=== PATIENT | male | born 1995 | race Hispanic/Latino ===

== ENCOUNTER 2016-11-14 19:02 | Emergency (ER) | payer OTHER ==
[~2016-11-14] VITALS: Ht 162.6 cm; Wt 116.0 kg
[~2016-11-14 19:02] MED LIST: NALTREXONE; VNL75T PO
[2016-11-14 19:11] VITALS: BP 118/72; PULSE 85; RESP 16; O2SAT 100
--- NOTE | 2016-11-14 21:06 | ED.REPORT ---
HPI-General Illness Date of Service November 14, 2016 ED Provider: Gideon Cash MD 21 year old male with a history of depression, anxiety, and heroin abuse presents to the ER accompanied by his mother due to concern for drug overdose. Nine days ago he started abusing his Xanax prescription and drinking heavily. When his mother returned home today she states that he appeared "out of it", and told her that he had been using Xanax, clonazepam, and drank a water bottle full of vodka. Patient reports that he last took medications around 13:30 today. Mother reports that the patient has been clean for 75 days from heroin on Vivitrol. Nursing Notes Stated Complaint: POSS OVERDOSE Chief Complaint: Substance Abuse Nursing Notes Reviewed: Yes Allergies: Coded Allergies: No Known Allergies (Verified Allergy, Unknown, 06/01/15) Scheduled Venlafaxine-Expunged Drug, Do Not Renew! (Effexor-Expunged Drug, Do Not Renew!) 75 Mg Tablet 75 MG PO DAILY Scheduled PRN Hydroxyzine Pamoate (Vistaril) 50 Mg Capsule 50 MG PO TID PRN PRN For Anxiety Miscellaneous Medications ([Naltrexone]) General Time Seen by MD: 21:05 Chief Complaint Other (Drug Overdose) Hx Obtained From: Other family... (Mother) Arrived By: Walk-in Sudden in Onset?: No Onset Occurred: Just prior to arrival Symptom Duration: Since onset Context Related History: Reports Depression Similar Sx Previous: Yes Past Medical History Past Medical History Anxiety, substane abuse (Heroin) Reports: Depression Past Surgical History Denies Smoking History Current Every Day Smoker Social History Opiate use Alcohol Use: Denies alcohol use Drug Use: IV drugs, Meth Ambulatory Status Independent Review of Systems Full Review of Systems Neurologic: Reports: Change LOC Psychiatric: Reports: Anxiety, Depression, Denies: Agitation, Confusion, Delusional, Hallucinations, auditory, Hallucinations, visual, Homicidal ideation, Hostile, Unable to control self Complete sys rev & neg: except as marked. Physical Exam Vital Signs Vital Signs Date Time Temp Pulse Resp B/P Pulse Ox O2 Delivery O2 Flow Rate FiO2 11/14/16 21:46 82 106/78 93 Room Air 11/14/16 21:42 82 13 106/78 93 Room Air 11/14/16 21:10 73 12 113/83 99 Room Air 11/14/16 19:11 36.4 85 16 118/72 100 Room Air Initial VS: Reviewed Head / Eyes: Atraumatic, Normocephalic, PERRL Neck: Supple, Non-tender, Full range of motion Respiratory: Breath sounds normal, Clear to auscultation, No respiratory distress Cardiovascular: Regular rate & rhythm, Heart sounds normal, Intact distal pulses Extremities: Vascular intact, Neuro intact, No swelling, No tenderness Skin: Warm, Dry, No cyanosis General/Constitutional: Well appearing, Well developed, Well hydrated, Well nourished Alertness: Positive: Sleeping but arousable ENT: Airway patent, Mucous membranes moist Neurologic: Oriented X3, Speech NL, No motor deficits, No sensory deficits Psychiatric: Not homicidal, No hallucinations, Cognitive function NL Abnormal Mood/Affect: Positive: Depressed, Flat affect Re-Eval/Medical Decision Med Decision/Clinical Course 21-year-old with history of various drugs of abuse including IV drug abuse. He has been clean from heroin for quite some time, but just this past week is been abusing Xanax and clonazepam intermittently. He took too much last night in addition to some alcohol, and was oversedated. Mom presents with him here now recovering having bottomed out from his depressed mental status due to the overdose. He is in no particular risk for Xanax or other benzo withdrawal, given the brief period abuse. He is not suicidal, but is not participating well with counseling at the moment. He is discharged home with mother for return to his counseling. He had formerly been on low-dose venlafaxine, and might benefit from a restart and advancement to a therapeutic dose. He is discharged in stable condition. Time of Eval: 21:17 Re-Evaluation/Progress Note: Discussed physical examination findings and plan to discharge. Patient and mother are amenable to the plan. Return precautions given. All other questions addressed. Counseled Regarding: Diagnosis, Need for follow-up, When/why to return to ED Discharge & Departure Primary Impression: Substance abuse Additional Impressions: Alcohol abuse Anxiety Depression Disposition: Home Discharge Condition All VS Reviewed: Yes Condition: Stable Additional Instructions: Go home and rest. Tylenol or Motrin okay in the morning for hangover. Hydration with Powerade or Gatorade is helpful. Consider returning to an antidepressant. Contact your prescriber to restart that. If he did well on venlafaxine, that might be a good start. Removal all substances with abuse potential from the household tonight. Observe him closely. Return to the ER if he develops breathing difficulty, seizure-like activity, nausea, vomiting, diarrhea, or any other worsening or concerning symptoms. Referrals: Jose D Shin MD (PCP) [facility] Attestation Portions of this note were transcribed by Mauricio Lazcano. I, Dr. Cash, personally performed the history, physical exam and medical decision-making; I reviewed and confirmed the accuracy of the information in the transcribed note. Signed by: Hayley Cummings, 11/14/2016 at 21:42 copies to: Jose D Shin MD, Christopher W MD November 14, 2016 21:06 MAURICIO LAZCANO November 14, 2016 21:14
[2016-11-14 21:10] VITALS: BP 113/83; PULSE 73; RESP 12; O2SAT 99
[2016-11-14] MEDS ORDERED: HYDR50CA PO (21:37)
[2016-11-14 21:42] VITALS: BP 106/78; PULSE 82; RESP 13; O2SAT 93
[2016-11-14 21:46] VITALS: BP 106/78; PULSE 82; O2SAT 93
== END 2016-11-14 21:49 | disposition home or self-care (01) ==
LOC: SED 19:02
DX: F13.10 Sedative, hypnotic or anxiolytic abuse, uncomplicated (principal); F10.10 Alcohol abuse, uncomplicated; F41.9 Anxiety disorder, unspecified; F32.9 Major depressive disorder, single episode, unspecified; F17.200 Nicotine dependence, unspecified, uncomplicated